=== PATIENT | male | born 1995 | race Caucasian/White ===

== ENCOUNTER 2022-05-12 17:00 | Emergency (ER) | payer MEDICAID ==
[~2022-05-12] VITALS: Ht 175.3 cm; Wt 113.6 kg
[2022-05-12 17:21] VITALS: BP 139/78
[2022-05-12] MEDS ORDERED: IBUP-2070 PO (21:48)
[2022-05-12] MEDS ORDERED: ACET-66 PO (21:48)
== END 2022-05-12 22:37 | disposition home or self-care (01) ==
LOC: EMS 17:05
DX: R07.89 Other chest pain (principal); F12.90 Cannabis use, unspecified, uncomplicated; Z88.8 Allergy status to other drugs, medicaments and biological substances; V49.49XA Driver injured in collision with other motor vehicles in traffic accident, initial encounter; Y93.89 Activity, other specified; Y92.89 Other specified places as the place of occurrence of the external cause; Y99.8 Other external cause status
CPT/HCPCS: 71045; 93005; 99283